=== PATIENT | male | born 1980 | race Caucasian/White ===

== ENCOUNTER 2017-01-18 12:47 | Inpatient (IN) | payer MEDICAID ==
[~2017-01-18] VITALS: Ht 162.6 cm; Wt 72.4 kg
[2017-01-18 08:00] VITALS: BP 118/65; RESP 19
[2017-01-18] MEDS ORDERED: KETOROLAC 60 MG INJ IM STA (13:46)
[2017-01-18] MEDS ORDERED: morphine 10 MG INJ IM ONE (14:00)
[2017-01-18] MEDS ORDERED: DIAZEPAM 5 MG TAB PO ONE (14:00)
--- NOTE | 2017-01-18 14:29 | RADRPT ---
PROCEDURE: CT Lumbar Spine without contrast. CLINICAL INDICATION: 36-year-old male with intermittent back pain. TECHNIQUE: The study was performed on a [employer] V[employer] CT scanner. Spiral axial 1 mm images were obtained through the lumbar spine and reformatted at 2.5 mm slice thickness. Sagitt al and coronal reformations were created from the raw axial data. The images were reviewed on a PACS workstation. One or more of the following dose reduction techniques were used: - Automated exposure control. - Adjustment of the mA and/or kV according to patient size. Use of iterative reconstruction technique. The CTDIvol is 8.96 mGy and the DLP is 240.47 mGycm. COMPARISON: No prior studies are available for comparison. FINDINGS: Images are performed from the level of T12 to the sacrum. T12 is unremarkable. The neural canal is n ormal in size. T12-L1: The intervertebral disc space neural canal and nerve root foramina are unremarkable. L1 is unremarkable. The articular facets are normal. L1-2: The intervertebral disc space neural canal and nerve root foramina are unremarkable. No disc bulge or herniations identified. L2 is normal. L2-3: The intervertebral disc space neural canal and nerve root foramina are unremarkable. No disc bulge or herniations identified. L3 is unremarkable. L3-4: The intervertebral disc space neural canal and nerve root foramina are unremarkable. There ar e mild degenerative changes in the dorsal right articular facet. The left articular facets are unrem arkable. L4 is unremarkable. L4-5: There is mild dorsal disc space narrowing at L4-5. There is very mild midline dorsal spondylo sis at L4-5. There is no evidence of spondylolysis or spondylolisthesis. There is a mild 4.7 mm AP r ight lateral disc bulge. There is a 4.2 mm AP left lateral disc bulge. L5 is unremarkable. L5-S1: There is mild dorsal disc space narrowing and mild dorsal spondylosis. There is no evidence of spondylolysis or spondylolisthesis. The neural canal and nerve root foramina are well maintained. The visible portions of the sacrum are normal. There is fecal material in the rectal ampulla. The visible portions of the pancreas, liver, adrenal glands, spleen and kidneys are normal. The aorta and inferior vena cava are unremarkable. The common iliac arteries, internal and external iliac arteries are normal. The psoas muscles and iliopsoas mu scles are normal where visualized. IMPRESSION: 1. 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 4.2 mm AP left lateral L4-5 disc bulge. 4.7 mm AP right lateral L4-5 disc bul ge. RPTAT:AAJJ Thomas Shoemaker Physician Date Time Electronically viewed and signed by Thomas Shoemaker Physician on 01/18/2017 14:29 GIULIANA/
[2017-01-18] MEDS ORDERED: HYDROmorphONE 1 MG/ML SYG IM STA (14:54)
[2017-01-18] MEDS ORDERED: HYDROmorphONE 1 MG/ML SYG IV STA (15:44)
[2017-01-18 15:55] LABS: BASOPHILS % 0.3 % (0.0-2.0); EOSINOPHILS % 0.2 % (0.0-7.0); HEMATOCRIT 44.3 % (42.0-52.0); HEMOGLOBIN 15.5 g/dl (14.0-18.0); LYMPHOCYTES # 1.6 10^3/ul (0.8-2.9); LYMPHOCYTES % 15.4 % (15.0-51.0); MEAN CORPUSCULAR VOLUME 85.9 fl (82.0-101.0); MEAN PLATELET VOLUME 11.5 fl (7.4-10.4); MONOCYTE # 0.6 10^3/ul (0.3-0.9); MONOCYTES % 5.9 % (0.0-11.0); NEUTROPHILS % 77.8 % (39.0-77.0); PLATELET COUNT 291 10^3/UL (140-415); RED BLOOD COUNT 5.16 10^6/ul (4.70-6.10); RED CELL DISTRIBUTION WIDTH 12.9 % (11.5-14.5); WHITE BLOOD COUNT 10.2 10^3/ul (4.8-10.8)
[2017-01-18 16:03] LABS: CALCIUM 10.1 mg/dl (8.4-10.2); CREATININE 1.04 mg/dl (0.61-1.24); POTASSIUM 4.2 mmol/L (3.5-5.1)
[2017-01-18 18:30] VITALS: TEMP 98.8
[2017-01-18] MEDS ORDERED: ONDANSETRON 4 MG INJ IV PRN ×2 (18:30→19:00)
[2017-01-18] MEDS ORDERED: HYDROmorphONE 1 MG/ML SYG IV PRN (18:30)
[2017-01-18] MEDS ORDERED: NACL 0.9% 3 ML SYG IV SCH (18:30)
--- NOTE | 2017-01-18 18:30 | HP ---
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 labs -We will transition to oral regimen tomorrow and likely patient will need follow -up in the outpatient setting Problems: HPI/ROS Admit Date/Time Admit Date/Time Hx of Present Illness Patient is a 36-year-old male anoxic past medical history presents to [facility] for acute 1 day onset severe low back pain shooting down his left and right leg down his knee area. Patient denies any numbness or tingling. Patient denies any bladder or bowel dysfunction. Patient states that he first experienced back pain approximately 5-6 years ago and has not experienced back pain proximally once a year since then. Patient does not have a regular doctor, however he did see a doctor recently that did give him some muscle relaxers and some sort of injection. 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 Patient denies any chest pain, shortness of breath, nausea, vomiting, headache. Patient only complains of low back pain and difficulty moving secondary to pain. PMH: Occasional back pain PSH: None Social: Non-smoker, occasional alcohol, no drugs Meds: None PMH/Family/Social Social History Smoking Status: Never smoker Exam/Review of Systems Vital Signs Vitals Vital Signs Date Time Temp Pulse Resp B/P Pulse Ox O2 Delivery O2 Flow Rate FiO2 01/18/17 17:34 98.6 68 16 125/62 98 Room Air Exam Exam Physical exam General: Patient is laying in bed and answers questions appropriately Mentation: Patient is alert and oriented 4, Head: Normocephalic atraumatic Eyes: EOMI, pupils reactive to light Neck: Supple, nontender, midline Respiratory: Clear to auscultation bilaterally Cardiovascular: regular rate, no obvious murmurs Gastrointestinal: non-tender to palpation, bowel sounds heard. Neurological: Moves all extremities spontaneously, however limited movement of LE bilaterally 2/2 pain. no loss of sensation globally. muscle: tender in the lumbar paraspinal muscles bilaterally Skin: No new skin lesions Labs Result Diagram: 01/18/17 1320 01/18/17 1320 CHRISTOPHER ANDERSEN Jan 18, 2017 18:30
--- NOTE | 2017-01-18 18:53 | ERA ---
ER Documentation Chief Complaint Date/Time DATE: 01/18/17 TIME: 18:45 Chief Complaint non traumatic lower back pain no releif with meds. sudden onset HPI 36-year-old male presents to emergency room for severe lower back pain that is nontraumatic. He also states he does not lift anything heavy or have a stressful job requiring physical activity. More pain today began around 8 AM. States the pain is such that it hurts to move and he does not want to walk. He denies leg weakness. He has had no change in his urinary function. He has never used IV drugs. He has had this pain for the last couple weeks and more mild periods. ROS All systems reviewed and are negative except as per history of present illness. Medications Home Meds No Active Prescriptions or Reported Meds Allergies Allergies: Coded Allergies: No Known Allergy (Unverified , 09/14/11) PMhx/Soc History of Surgery: No Anesthesia Reaction: No Hx Neurological Disorder: No Hx Respiratory Disorders: No Hx Cardiac Disorders: No Hx Psychiatric Problems: No Hx Miscellaneous Medical Probl: No (PT DENIES) Hx Alcohol Use: Yes Hx Substance Use: No Hx Tobacco Use: No Smoking Status: Never smoker Physical Exam Vitals Vital Signs Date Time Temp Pulse Resp B/P Pulse Ox O2 Delivery O2 Flow Rate FiO2 01/18/17 17:34 98.6 68 16 125/62 98 Room Air 01/18/17 14:49 98.9 65 18 114/64 98 Room Air 01/18/17 12:54 99.1 84 20 148/60 98 Physical Exam Const: [] Moderate distress, appears uncomfortable. Head: Atraumatic Eyes: Normal Conjunctiva ENT: Normal External Ears, Nose and Mouth. Neck: Full range of motion..~ No meningismus. Abd: Soft, non tender, non distended. Normal bowel sounds Skin: No petechiae or rashes Back: No midline tenderness, left paraspinal muscle spasm with tenderness in the lower lumbar area, no deformities. Pain on any movement of lumbar spine. Ext: No cyanosis, or edema, 5 out of 5 strength bilateral legs distally. The pulses intact Neur: Awake and alert 3, no focal deficits. Sensation intact bilateral lower extremities, no saddle anesthesia. Psych: Normal Mood and Affect Result Diagram: 01/18/17 1320 01/18/17 1320 Results 24 hrs Laboratory Tests Test 01/18/17 13:20 White Blood Count 10.210^3/ul Red Blood Count 5.1610^6/ul Hemoglobin 15.5g/dl Hematocrit 44.3% Mean Corpuscular Volume 85.9fl Mean Corpuscular Hemoglobin 30.0pg Mean Corpuscular Hemoglobin Concent 35.0g/dl Red Cell Distribution Width 12.9% Platelet Count 45051^3/UL Mean Platelet Volume 11.5fl Neutrophils % 77.8% Lymphocytes % 15.4% Monocytes % 5.9% Eosinophils % 0.2% Basophils % 0.3% Nucleated Red Blood Cells % 0.0/100WBC Neutrophils # 8.010^3/ul Lymphocytes # 1.610^3/ul Monocytes # 0.610^3/ul Eosinophils # 0.010^3/ul Basophils # 0.010^3/ul Nucleated Red Blood Cells # 0.010^3/ul Sodium Level 137mmol/L Potassium Level 4.2mmol/L Chloride Level 103mmol/L Carbon Dioxide Level 22mmol/L Anion Gap 16 Blood Urea Nitrogen 20mg/dl Creatinine 1.04mg/dl Glucose Level 115mg/dl Calcium Level 10.1mg/dl Current Medications Medications (Trade) Dose Ordered Sig/Antonino Route PRN Reason Start Time Stop Time Status Last Admin Dose Admin Ketorolac Tromethamine (Toradol) 60 mg ONCE STAT IM 01/18/17 13:46 01/18/17 13:48 DC 01/18/17 13:54 Morphine Sulfate (morphine) 4 mg ONCE ONCE IM 01/18/17 14:00 01/18/17 14:01 DC 01/18/17 13:54 Diazepam (Valium) 10 mg ONCE ONCE PO 01/18/17 14:00 01/18/17 14:01 DC 01/18/17 13:54 Hydromorphone HCl (Dilaudid) 1 mg ONCE STAT IM 01/18/17 14:54 01/18/17 14:56 DC 01/18/17 15:15 Hydromorphone HCl (Dilaudid) 2 mg ONCE STAT IV 01/18/17 15:44 01/18/17 15:46 DC 01/18/17 16:59 IV Flush (NS 3 ml) 3 ml PER PROTOCOL IV 01/18/17 18:30 Ondansetron HCl (Zofran Inj) 4 mg Q6H PRN IV NAUSEA AND/OR VOMITING 01/18/17 18:30 Hydromorphone HCl (Dilaudid) 0.5 mg Q4H PRN IV SEVERE PAIN LEVEL 7-10 01/18/17 18:30 01/18/17 18:30 DC Enoxaparin Sodium (Lovenox) 40 mg DAILY SC 01/19/17 09:00 Gabapentin (Neurontin) 300 mg TID PO 01/18/17 23:00 Methocarbamol (Robaxin) 1,500 mg TID PO 01/18/17 23:00 Hydromorphone HCl (Dilaudid) 1 mg Q4H PRN IV SEVERE PAIN LEVEL 7-10 01/18/17 18:30 Ondansetron HCl (Zofran Inj) 4 mg BRIDGE ORDER PRN IV NAUSEA AND/OR VOMITING 01/18/17 19:00 01/19/17 18:59 Acetaminophen (Tylenol Tab) 650 mg ER BRIDGE PRN PO MILD PAIN/FEVER 01/18/17 19:00 01/19/17 18:59 Procedures/MDM Intractable back pain with significant disc bulging on CAT scan. Patient was initially given IM morphine, Toradol and p.o. Valium. This helped very minimally with his pain but still severe pain when he moves. Additional 1 mg of Dilaudid was given IM after which the pains patient was somewhat better but still significant. He was given 2 mg of IV Dilaudid laboratories were obtained. Still has significant pain. He is being admitted for intractable pain. I spoke with Dr. Noel of echo see the patient in consult and recommends an MRI. Dr. Patrick Waters is admitting. Number spine interpretation: Multilevel lumbar disc bulges most significant at L4-L5, osteoarthritis, no fractures. No abdominal abnormality seen. Departure Diagnosis: Primary Impression: Intractable back pain Additional Impression: Lumbar disc herniation Condition: Stable BEENA EDUARDO DO Jan 18, 2017 18:53
[2017-01-18] MEDS ORDERED: ACETAMINOPHEN 325 MG TAB PO PRN (19:00)
[2017-01-18] MEDS: HYDROmorphONE 1 MG/ML SYG IV PRN (20:16)
--- NOTE | 2017-01-18 23:50 | RADRPT ---
PROCEDURE: MRI OF THE LUMBAR SPINE. CLINICAL INDICATION: Severe low back pain. TECHNIQUE: Multiple MRI images were obtained utilizing multiple sequences in sagittal and axial tremaine edith. Images were interpreted on high-resolution PACS system. No contrast was administered. COMPARISON: CT lumbar spine of the same day FINDINGS: The vertebral bodies maintain normal height. There are no acute fractures. Bone marrow signal is wi thin normal limits. Alignment is intact. The conus ends at L2. The distal cord is normal in signal and caliber. There is no evidence of asif chnoiditis. Paraspinal musculature is unremarkable. T11-T12: Normal disc height and signal. No annular bulge, central canal narrowing, or neural foramin al narrowing. T12-L1: Normal disc height and signal. No annular bulge, central canal narrowing, or neural foramina l narrowing. L1-L2: Normal disc height and signal. No annular bulge, central canal narrowing, or neural foramina l narrowing. L2-L3: Normal disc height and signal. No annular bulge, central canal narrowing, or neural foraminal narrowing. L3-L4: Normal disc height and signal. Minimal annular bulge with a very small central annular fissur e but no central canal or neural foraminal narrowing. Mild right facet arthropathy. L4-L5: Mild to moderate loss of disc height more prominent posteriorly with disc desiccation and sma ll anterior endplate osteophytes. Small 2 mm left paracentral disc protrusion with an annular fissur e with minimal narrowing of the left lateral recess but no central canal narrowing. No neural forami nal narrowing. Minimal bilateral facet arthropathy. L5-S1: Mild loss of disc height more prominent posteriorly with disc desiccation. Minimal annular bu lge with a small left paracentral annular fissure but no central canal narrowing. Mild bilateral fac et arthropathy. RPTAT: HTLT IMPRESSION: 1. Mild to moderate degenerative disc disease at L4-L5 with a small 2 mm left paracentral disc protr usion with an annular fissure with minimal left lateral recess narrowing but no central canal narrow ing. 2. Mild degenerative disc disease at L5-S1 with a minimal annular bulge and a left paracentral annul ar fissure but no central canal or neural foraminal narrowing. 3. Minimal annular bulge and a very small central annular fissure at L3-L4. .Maral Sullivan MD, MD Date Time Electronically viewed and signed by .Maral Sullivan MD, MD on 01/18/2017 23:50 .T/
[2017-01-19] MEDS ORDERED: TAMSULOSIN (SR) 0.4 MG CAP PO ONE (00:30)
[2017-01-19] MEDS: METHOCARBAMOL 750 MG TAB PO SCH ×4 (00:34→20:40)
[2017-01-19] MEDS: GABAPENTIN 300 MG CAP PO SCH ×4 (00:34→20:39)
[2017-01-19] MEDS: HYDROmorphONE 1 MG/ML SYG IV PRN ×2 (00:38→06:45)
[2017-01-19 00:41] VITALS: Ht 162.6 cm; Wt 72.4 kg
[2017-01-19 02:00] VITALS: BP 103/55; RESP 18
[2017-01-19 04:05] VITALS: BP 103/55; PULSE 64; RESP 18
[2017-01-19 06:24] LABS: BASOPHILS % 0.4 % (0.0-2.0); EOSINOPHILS # 0.3 10^3/ul (0.0-0.5); EOSINOPHILS % 3.4 % (0.0-7.0); HEMATOCRIT 43.4 % (42.0-52.0); HEMOGLOBIN 14.5 g/dl (14.0-18.0); LYMPHOCYTES # 3.3 10^3/ul (0.8-2.9); LYMPHOCYTES % 44.3 % (15.0-51.0); MEAN CORPUSCULAR HEMOGLOBIN 29.3 pg (29.0-33.0); MEAN CORPUSCULAR HGB CONC 33.4 g/dl (32.0-37.0); MEAN CORPUSCULAR VOLUME 87.7 fl (82.0-101.0); MEAN PLATELET VOLUME 10.6 fl (7.4-10.4); MONOCYTE # 0.5 10^3/ul (0.3-0.9); MONOCYTES % 6.9 % (0.0-11.0); NEUTROPHIL # 3.3 10^3/ul (1.6-7.5); NEUTROPHILS % 44.7 % (39.0-77.0); PLATELET COUNT 281 10^3/UL (140-415); RED BLOOD COUNT 4.95 10^6/ul (4.70-6.10); RED CELL DISTRIBUTION WIDTH 13.8 % (11.5-14.5); WHITE BLOOD COUNT 7.4 10^3/ul (4.8-10.8)
[2017-01-19 06:42] LABS: ALBUMIN 3.8 g/dl (3.3-4.9); ALBUMIN/GLOBULIN RATIO 1.18; BILIRUBIN,INDIRECT 0.5 mg/dl (0-1.1); BILIRUBIN,TOTAL 0.5 mg/dl (0.2-1.3); CALCIUM 9.2 mg/dl (8.4-10.2); CREATININE 1.19 mg/dl (0.61-1.24)
[2017-01-19 08:00] VITALS: BP 104/55; RESP 82
[2017-01-19] MEDS: ENOXAPARIN 40 MG/0.4 ML SYG SC SCH (08:42)
--- NOTE | 2017-01-19 11:22 | PN ---
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 labs -still unable to walk well, will order PT Problems: Subjective 24 Hr Interval Summary Free Text/Dictation no acute issues, able to urinate now Exam/Review of Systems Vital Signs Vitals Vital Signs Date Time Temp Pulse Resp B/P Pulse Ox O2 Delivery O2 Flow Rate FiO2 01/19/17 08:00 98.8 82 82 104/55 96 01/19/17 04:05 Room Air 01/18/17 18:30 2.0 Intake and Output 01/18/17 01/18/17 01/19/17 15:00 23:00 07:00 Intake Total 240 ml Output Total 700 ml Balance -460 ml Exam Physical exam General: Patient is laying in bed and answers questions appropriately Mentation: Patient is alert and oriented 4, Head: Normocephalic atraumatic Eyes: EOMI, pupils reactive to light Neck: Supple, nontender, midline Respiratory: Clear to auscultation bilaterally Cardiovascular: regular rate, no obvious murmurs Gastrointestinal: non-tender to palpation, bowel sounds heard. Neurological: Moves all extremities spontaneously, however limited movement of LE bilaterally 2/2 pain. no loss of sensation globally. muscle: tender in the lumbar paraspinal muscles bilaterally Skin: No new skin lesions Results Result Diagram: 01/19/17 0537 01/19/17 0537 Results 24 hrs Laboratory Tests Test 01/18/17 13:20 01/19/17 05:37 White Blood Count 10.2 7.4 # Red Blood Count 5.16 4.95 Hemoglobin 15.5 14.5 Hematocrit 44.3 43.4 Mean Corpuscular Volume 85.9 87.7 Mean Corpuscular Hemoglobin 30.0 29.3 Mean Corpuscular Hemoglobin Concent 35.0 33.4 Red Cell Distribution Width 12.9 13.8 Platelet Count 291 281 Mean Platelet Volume 11.5 H 10.6 H Neutrophils % 77.8 H 44.7 Lymphocytes % 15.4 44.3 Monocytes % 5.9 6.9 Eosinophils % 0.2 3.4 Basophils % 0.3 0.4 Nucleated Red Blood Cells % 0.0 0.0 Neutrophils # 8.0 H 3.3 Lymphocytes # 1.6 3.3 H Monocytes # 0.6 0.5 Eosinophils # 0.0 0.3 Basophils # 0.0 0.0 Nucleated Red Blood Cells # 0.0 0.0 Sodium Level 137 138 Potassium Level 4.2 4.0 Chloride Level 103 103 Carbon Dioxide Level 22 29 Anion Gap 16 10 # Blood Urea Nitrogen 20 18 Creatinine 1.04 1.19 Glucose Level 115 88 Calcium Level 10.1 9.2 Total Bilirubin 0.5 Direct Bilirubin 0.00 Indirect Bilirubin 0.5 Aspartate Amino Transf (AST/SGOT) 30 Alanine Aminotransferase (ALT/SGPT) 45 Alkaline Phosphatase 59 Total Protein 7.0 Albumin 3.8 Globulin 3.20 Albumin/Globulin Ratio 1.18 Medications Medications Current Medications Ondansetron HCl (Zofran Inj) 4 mg Q6H PRN IV NAUSEA AND/OR VOMITING; Start at 18:30 Enoxaparin Sodium (Lovenox) 40 mg DAILY SC Last administered on 01/19/17 08:42 ; Admin Dose 40 MG; Start 01/19/17 at 09:00 Gabapentin (Neurontin) 300 mg TID PO Last administered on 01/19/17 08:41; Admin Dose 300 MG; Start 01/18/17 at 23:00 Methocarbamol (Robaxin) 1,500 mg TID PO Last administered on 01/19/17 08:41; Admin Dose 1,500 MG; Start 01/18/17 at 23:00 Hydromorphone HCl (Dilaudid) 1 mg Q4H PRN IV SEVERE PAIN LEVEL 7-10 Last administered on 01/19/17t 06:45; Admin Dose 1 MG; Start 01/18/17 at 18:30 Tamsulosin HCl (Flomax) 0.4 mg HS PO ; Start 01/19/17 at 21:00 Influenza Virus Vaccine (Fluzone) 0.5 ml ONCE ONCE IM* ; Start 01/20/17 at 09:00 ; Stop 01/20/17 at 09:01 CHRISTOPHER ANDERSEN Jan 19, 2017 11:22
[2017-01-19 14:00] VITALS: BP 101/57; RESP 18
[2017-01-19] MEDS: OXYCODONE/ACETAMINOPHEN (10/325) TAB PO PRN (16:31)
[2017-01-19 20:00] VITALS: BP 126/65; RESP 19
[2017-01-19] MEDS: TAMSULOSIN (SR) 0.4 MG CAP PO SCH (20:42)
--- NOTE | 2017-01-19 22:05 | CONS ---
Date/Time of Note Date/Time of Note DATE: 01/19/17 TIME: 22:00 Assessment/Plan Assessment/Plan Additional Assessment/Plan Back pain. MRI c/w mild degenerative disease but no acute findings. Consider PT , analgesics, etc. No indication for surgery. Thank you. Consultation Date/Type/Reason Admit Date/Time Date of Consultation: Jan 19, 2017 Type of Consultation: neurosurgery Reason for Consultation back pain Hx of Present Illness This patient presented to the ER with severe back pain. I was asked to see this patient by the ER attending for "4.7mm disk" herniation seen on CT. This was before the MRI was performed. As is so often the case, the findings on CT were not demonstrated on MRI. MRI is essentially normal, with onl very minor/ mild findings including a left paracentral disk 'bulge' of 2mm at L4-5. The patient' s pain is better this evening, though he still has difficulty when standing. He denies any neurologic complaints. Social History Smoking Status: Light tobacco smoker Exam/Review of Systems Vital Signs Vitals Vital Signs Date Time Temp Pulse Resp B/P Pulse Ox O2 Delivery O2 Flow Rate FiO2 01/19/17 14:00 98.6 86 18 101/57 96 01/19/17 04:05 Room Air 01/18/17 18:30 2.0 Intake and Output 01/18/17 01/18/17 01/19/17 15:00 23:00 07:00 Intake Total 240 ml Output Total 700 ml Balance -460 ml Exam Constitutional: alert, oriented, well developed Psych: nl mood/affect, no complaints Head: atraumatic, normocephalic Eyes: EOMI, nl conjunctiva, nl lids ENMT: nl external ears & nose, nl lips & teeth Neck: non-tender, supple Cardiovascular: regular rate and rhythm Musculoskeletal: nl extremities to inspection Extremities: normal pulses Neurological: PRODUCT SAFETY CONSULTANT II-XII intact, nl mental status, nl speech, nl strength Skin: nl turgor, rash or lesions Results Result Diagram: 01/19/17 0537 01/19/17 0537 Results 24 hrs Laboratory Tests Test 01/19/17 05:37 White Blood Count 7.4 # Red Blood Count 4.95 Hemoglobin 14.5 Hematocrit 43.4 Mean Corpuscular Volume 87.7 Mean Corpuscular Hemoglobin 29.3 Mean Corpuscular Hemoglobin Concent 33.4 Red Cell Distribution Width 13.8 Platelet Count 281 Mean Platelet Volume 10.6 H Neutrophils % 44.7 Lymphocytes % 44.3 Monocytes % 6.9 Eosinophils % 3.4 Basophils % 0.4 Nucleated Red Blood Cells % 0.0 Neutrophils # 3.3 Lymphocytes # 3.3 H Monocytes # 0.5 Eosinophils # 0.3 Basophils # 0.0 Nucleated Red Blood Cells # 0.0 Sodium Level 138 Potassium Level 4.0 Chloride Level 103 Carbon Dioxide Level 29 Anion Gap 10 # Blood Urea Nitrogen 18 Creatinine 1.19 Glucose Level 88 Calcium Level 9.2 Total Bilirubin 0.5 Direct Bilirubin 0.00 Indirect Bilirubin 0.5 Aspartate Amino Transf (AST/SGOT) 30 Alanine Aminotransferase (ALT/SGPT) 45 Alkaline Phosphatase 59 Total Protein 7.0 Albumin 3.8 Globulin 3.20 Albumin/Globulin Ratio 1.18 Medications Medications Current Medications Ondansetron HCl (Zofran Inj) 4 mg Q6H PRN IV NAUSEA AND/OR VOMITING; Start at 18:30 Enoxaparin Sodium (Lovenox) 40 mg DAILY SC Last administered on 01/19/17 08:42 ; Admin Dose 40 MG; Start 01/19/17 at 09:00 Gabapentin (Neurontin) 300 mg TID PO Last administered on 01/19/17 20:39; Admin Dose 300 MG; Start 01/18/17 at 23:00 Methocarbamol (Robaxin) 1,500 mg TID PO Last administered on 01/19/17 20:40; Admin Dose 1,500 MG; Start 01/18/17 at 23:00 Tamsulosin HCl (Flomax) 0.4 mg HS PO Last administered on 01/19/17 20:42; Admin Dose 0.4 MG; Start 01/19/17 at 21:00 Influenza Virus Vaccine (Fluzone) 0.5 ml ONCE ONCE IM* ; Start 01/20/17 at 09:00 ; Stop 01/20/17 at 09:01 Oxycodone/ Acetaminophen (Endocet (10/ 325)) 1 tab Q4H PRN PO PAIN Last administered on 01/19/17 16:31; Admin Dose 1 TAB; Start 01/19/17 at 11:30 NACHO CUMMINGS MD Jan 19, 2017 22:05
[2017-01-20] MEDS: OXYCODONE/ACETAMINOPHEN (10/325) TAB PO PRN ×2 (01:52→11:44)
[2017-01-20 02:00] VITALS: BP 114/62; RESP 18
[2017-01-20 08:00] VITALS: BP 123/61; RESP 19
[2017-01-20] MEDS: GABAPENTIN 300 MG CAP PO SCH ×3 (08:43→20:32)
[2017-01-20] MEDS: METHOCARBAMOL 750 MG TAB PO SCH ×3 (08:43→20:33)
[2017-01-20] MEDS: ENOXAPARIN 40 MG/0.4 ML SYG SC SCH (08:44)
[2017-01-20] MEDS ORDERED: INFLUENZA VIRUS VACCINE 0.5 ML (DISPENSING) IM* ONE (09:00)
[2017-01-20 14:00] VITALS: BP 136/71; RESP 19
[2017-01-20] MEDS ORDERED: DEXAMETHASONE 4 MG TAB PO ONE (14:30)
--- NOTE | 2017-01-20 17:22 | PN ---
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 Exam/Review of Systems Vital Signs Vitals Vital Signs Date Time Temp Pulse Resp B/P Pulse Ox O2 Delivery O2 Flow Rate FiO2 01/20/17 08:00 98.3 63 19 123/61 94 01/19/17 04:05 Room Air 01/18/17 18:30 2.0 Intake and Output 01/19/17 01/19/17 01/20/17 15:00 23:00 07:00 Intake Total 1100 ml 500 ml Output Total 1400 ml 700 ml Balance -300 ml -200 ml Exam Physical exam General: Patient is laying in bed and answers questions appropriately Mentation: Patient is alert and oriented 4, Head: Normocephalic atraumatic Eyes: EOMI, pupils reactive to light Neck: Supple, nontender, midline Respiratory: Clear to auscultation bilaterally Cardiovascular: regular rate, no obvious murmurs Gastrointestinal: non-tender to palpation, bowel sounds heard. Neurological: Moves all extremities spontaneously, however limited movement of LE bilaterally 2/2 pain. no loss of sensation globally. muscle: tender in the lumbar paraspinal muscles bilaterally Skin: No new skin lesions Results Result Diagram: 01/19/17 0537 01/19/17 0537 Medications Medications Current Medications Ondansetron HCl (Zofran Inj) 4 mg Q6H PRN IV NAUSEA AND/OR VOMITING; Start at 18:30 Enoxaparin Sodium (Lovenox) 40 mg DAILY SC Last administered on 01/20/17 08:44 ; Admin Dose 40 MG; Start 01/19/17 at 09:00 Gabapentin (Neurontin) 300 mg TID PO Last administered on 01/20/17 12:32; Admin Dose 300 MG; Start 01/18/17 at 23:00 Methocarbamol (Robaxin) 1,500 mg TID PO Last administered on 01/20/17 12:32; Admin Dose 1,500 MG; Start 01/18/17 at 23:00 Tamsulosin HCl (Flomax) 0.4 mg HS PO Last administered on 01/19/17 20:42; Admin Dose 0.4 MG; Start 01/19/17 at 21:00 Oxycodone/ Acetaminophen (Endocet (10/ 325)) 1 tab Q4H PRN PO PAIN Last administered on 01/20/17 11:44; Admin Dose 1 TAB; Start 01/19/17 at 11:30 CHRISTOPHER ANDERSEN Jan 20, 2017 17:22
[2017-01-20 19:58] VITALS: BP 122/67; RESP 16
[2017-01-20] MEDS: DOCUSATE SODIUM 100 MG CAP PO SCH (20:32)
[2017-01-20] MEDS: TAMSULOSIN (SR) 0.4 MG CAP PO SCH (20:33)
[2017-01-21] MEDS: OXYCODONE/ACETAMINOPHEN (10/325) TAB PO PRN (01:45)
[2017-01-21 02:12] VITALS: BP 124/59; RESP 16
[2017-01-21 08:00] VITALS: BP 112/55; RESP 18
[2017-01-21] MEDS: DOCUSATE SODIUM 100 MG CAP PO SCH (08:26)
[2017-01-21] MEDS: METHOCARBAMOL 750 MG TAB PO SCH ×2 (08:26→12:44)
[2017-01-21] MEDS: ENOXAPARIN 40 MG/0.4 ML SYG SC SCH (08:27)
[2017-01-21] MEDS: GABAPENTIN 300 MG CAP PO SCH ×2 (08:27→12:44)
--- NOTE | 2017-01-21 11:43 | PDOCDIS ---
Discharge Instructions CONDITION Patient Condition: Stable HOME CARE INSTRUCTIONS: Diet Instructions: Regular ACTIVITY: Activity Restrictions: Slowly Increase Activity FOLLOW UP/APPOINTMENTS Follow-up Plan 1. Please see your primary care provider as soon as possible 2. Take medications as directed 3. outpatient PT as directed CHRISTOPHER ANDERSEN Jan 21, 2017 11:43
[2017-01-21] MEDS ORDERED: METH750T2 PO (11:44)
[2017-01-21] MEDS ORDERED: GABA300C16 PO (11:44)
[2017-01-21] MEDS ORDERED: OXYC-279 PO (11:44)
--- NOTE | 2017-01-21 14:28 | DS ---
Date/Time of Note Date/Time of Note DATE: 01/21/17 TIME: 14:27 Discharge Summary Admission/Discharge Info Admit Date/Time Jan 18, 2017 at 18:35 Discharge Date/Time Patient Condition: Stable Hx of Present Illness Patient is a 36-year-old male anoxic past medical history presents to [facility] for acute 1 day onset severe low back pain shooting down his left and right leg down his knee area. Patient denies any numbness or tingling. Patient denies any bladder or bowel dysfunction. Patient states that he first experienced back pain approximately 5-6 years ago and has not experienced back pain proximally once a year since then. Patient does not have a regular doctor, however he did see a doctor recently that did give him some muscle relaxers and some sort of injection. 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 Patient denies any chest pain, shortness of breath, nausea, vomiting, headache. Patient only complains of low back pain and difficulty moving secondary to pain. 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 Patient was assessed by neurosurgery and received MRI of the spine, neurosurgery stated there is no acute issues at this time that requires surgical intervention. Recommended physical therapy and pain management. Patient was evaluated and monitored with pain medication, muscle relaxants and physical therapy also saw patient who recommended outpatient physical therapy. Patient recovered to the point where he could ambulate to perform activities of daily living and was discharged with a short course of pain medication, muscle relaxant, gabapentin and with strict instructions to follow-up with his primary care provider. Outpatient physical therapy will be arranged before discharge. Home Meds Active Scripts Oxycodone HCl/Acetaminophen (Percocet 5-325 mg Tablet) 1 Each Tablet, 1 EACH PO Q8 Y for PAIN, #30 TAB Prov:CHRISTOPHER ANDERSEN 10/1/17 Gabapentin* (Gabapentin*) 300 Mg Capsule, 300 MG PO TID for 30 Days, #90 CAP Prov:CHRISTOPHER ANDERSEN 01/21/17 Methocarbamol* (Methocarbamol*) 750 Mg Tablet, 1500 MG PO TID for 10 Days, #30 TAB Prov:CHRISTOPHER ANDERSEN 01/21/17 Follow-up Plan 1. Please see your primary care provider as soon as possible 2. Take medications as directed 3. outpatient PT as directed Primary Care Provider Not On Staff Doctor Time spent on discharge: > 30 minutes CHRISTOPHER ANDERSEN Jan 21, 2017 14:28
== END 2017-01-21 15:20 | disposition home or self-care (01) | DRG 552 ==
LOC: E/R 12:47 → PP2 18:35
PROVIDERS: ADMIT Internal Medicine; ATTEND Internal Medicine
PROC: 3E0234Z Introduction of Serum, Toxoid and Vaccine into Muscle, Percutaneous Approach (ICD-10-PCS; principal; 2017-01-20)
DX: M62.830 Muscle spasm of back (principal); M47.816 Spondylosis without myelopathy or radiculopathy, lumbar region; M51.26 Other intervertebral disc displacement, lumbar region; Q05.7 Lumbar spina bifida without hydrocephalus; Z23 Encounter for immunization
CPT/HCPCS: 36415; 72131; 72148; 80048; 80053; 85025; 90686; 96372; 96374; 97162; A4310; J1170; J1650; J1885; J2270